=== PATIENT | male | born 2005 | race Caucasian/White ===

== ENCOUNTER 2024-02-18 00:07 | Outpatient (CLI) | payer OTHER, SELFPAY ==
--- OUTSIDE RECORDS SUMMARY | 2024-02-19 10:24 | XMS_ITS | Clinical Summary ---
Author Organization [facility] Address [address] [place] [address] Care Team Providers Care Physician Practice Manager Name Role Phone Gabe Morales MD Primary Care Provider [phone] Source Comments You are receiving this document as you are listed as the primary care provider,follow-up provider, or the patient has been referred to you for consultation.This is in compliance with the Medicare and[facility] EHR Incentive Program,which states Providers who transition their patient to another setting of careor provider of care or refers their patient to another provider of care shouldprovide summary care record for each transition of care or referral. [facility] Allergies Active Allergy Reactions Criticality Noted Date [...] Description 02/10/2024 7:40 AM CDT Office Visit [facility] [address] [place] [address] Gabe Morales MD Left wrist pain (Primary Dx); Acute cough from Last 3 Months Immunizations Name Administration Dates Next Due 9vHPV (Gardasil 9) 06/09/2017,02/11/2016, 014 DTaP 2008,11/23/2004,2003 [id number] (Pediarix) 02/25/2004,2003,0 2003 Flu Vac (3+ yrs) 03/25/2007 Flu Vac (6-35 mo) 04/20/2004,03/19/2004 Flu Vac Preserv Free (3+yrs) 03/30/2005 Fluzone Qiv Multidose Vial 0 .25 (6-35 Mos) 04/05/2018,02/11/2016 [id number] 05/03/2009 HepA Adult (19+ yrs) 08/22/2007,12/16/2006 HepA, Unspecified Formulation 08/22/2007, 007 HepB, Unspecified Formulation 02/25/2004, 004,2003 Hib (HbOC) 2003,2003 Hib (PedvaxHIB) 08/19/2004 IPV (Polio) 08/22/2007, 4,2003,2003 Influenza (Flucelvax), Prese rv Free QIV 03/29/2022 Influenza IIV4 (Quadrivalent ) 0.5mL ([id number]) 04/21/2021,03/06/2020,03/04/2019 Influenza, Unspecified Formulation 03/25/2007 MCV4 (Menactra) [...] (Preventive Services) 2019 COVID-19 Vaccine ( season) 2024 03/29/2022, 06/04/2021, 09/20/2020, Additional history exists Influenza [...] Vaccine Completed 06/09/2017, 01/13, 06/09/2014 Care Teams Physician Practice Manager Relationship Specialty Start Date End Date Gabe Morales MD [address] [place], [place] [phone] PCP - General Family Practice 10/17/23
--- OUTSIDE RECORDS SUMMARY | 2024-02-19 10:25 | XMS_ITS | Encounter Summary ---
Author Organization [facility] Address [address] [place] [address]. [place] [address] Care Team Providers Care Handtools Repairer Name Role Phone Megha Worthington MD Unavailable Dee Dee Ruiz MD Unavailable [phone] Dee Dee Ruiz MD Primary Care Provider [phone] Encounter Details Date Type Department Care Team [...] on filedocumented in this encounter Care Teams Handtools Repairer Relationship Specialty Start Date End Date Dee Dee Ruiz MD [address] [place] [address] PCP - General Pediatrics 09/04/14 Megha Worthington MD [facility] [address] [facility] [place] [address] Referring Physician Orthopaedic Surgery 10/18/17 Dee Dee Ruiz MD [address] [place] [address] Assigned PCP 11/26/20 03/26/22 documented as of this encounter
--- OUTSIDE RECORDS SUMMARY | 2024-02-19 10:25 | XMS_ITS | Encounter Summary ---
Author Organization [facility] Address [address] [place] [address] Care Team Providers Care Accounting Office Manager Name Role Phone Megha Worthington MD Unavailable Dee Dee Ruiz MD Unavailable [phone] Dee Dee Ruiz MD Primary Care Provider + [phone] Encounter Details Date Type Department Care Team [...] on filedocumented in this encounter Care Teams Accounting Office Manager Relationship Specialty Start Date End Date Dee Dee Ruiz MD [address] [place] [address] PCP - General Pediatrics 09/04/14 Megha Worthington MD [facility] [address] [place] [address] Referring Physician Orthopaedic Surgery 10/18/17 Dee Dee Ruiz MD [address] [place] [address] Assigned PCP 11/26/20 03/26/22 documented as of this encounter
--- OUTSIDE RECORDS SUMMARY | 2024-02-19 10:25 | XMS_ITS | Clinical Summary ---
Author Organization [facility] Address [address] [place] [address]. [place] [address] Care Team Providers Care Garbage Worker Name Role Phone Megha Worthington MD Unavailable Dee Dee Ruiz MD Primary Care Provider [phone] Allergies Active Allergy Reactions Criticality Noted Date [...] of Treatment Not on file Care Teams Garbage Worker Relationship Specialty Start Date End Date Dee Dee Ruiz MD [address] [place] [address] PCP - General Pediatrics 09/04/14 Megha Worthington MD [facility] [address] [place] [address] Referring Physician Orthopaedic Surgery 10/18/17
--- OUTSIDE RECORDS SUMMARY | 2024-02-19 10:25 | XMS_ITS | Referral Summary ---
Author Organization [facility] Address [address] [place] [address]. [place] [address] Care Team Providers Care Aviation Tactical Readiness Officer Name Role Phone Megha Worthington MD Unavailable Dee Dee Ruiz MD Primary Care Provider [phone] Allergies Active Allergy Reactions Criticality Noted Date [...] of Treatment Not on file Care Teams Aviation Tactical Readiness Officer Relationship Specialty Start Date End Date Dee Dee Ruiz MD [address] [place] [address] PCP - General Pediatrics 09/04/14 Megha Worthington MD [facility] [address] [place] [address] Referring Physician Orthopaedic Surgery 10/18/17
--- OUTSIDE RECORDS SUMMARY | 2024-02-19 10:25 | XMS_ITS | Encounter Summary ---
Author Organization [facility] Address [address] [place] [address] Care Team Providers Care Applications Administrator Name Role Phone Gabe Morales MD Primary Care Provider [phone] Reason for Visit * Reason Comments ROUTINE HEALTH MAINTENANCE Encounter Details Date Type Department Care Team (Latest Contact Info) Description 11/15/2023 12:40 PM CDT Office Visit [facility] [address] [place], [place] [phone] Gabe Morales MD [address] [place], [place] [phone] Routine health maintenance (Primary Dx); Attention deficit [...] Patient Instructions * Patient Instructions* Hilda Akers, DIE CASTER - 11/15/2023 12:40 PM CDT Images from [...] can you learn more? 1. Go to [email or web address].Klutch/Photocollectlibrary. 2. Enter P072 in the search box. Current as of: January 16, 2023?Content Version: 14.0 ?? [employer]. Care instructions adapted under license by your healthcare professional. If you have questions about a medical condition or this instruction, always ask your healthcare professional. [employer] disclaims any warranty or liability for your use of this information. [employer] DNA is your genetic information, and it's unique to you. It can also hold the ryder to discovering genetic health risks, creating personalized care and building a healthier community. [employer] is launching [employer] Solutions[employer], a study that looks at how DNA [...] family and generations to come.If you're a [employer] or Tiffany Pascal patient over the age of 18, you can take part in the study. Registration is quick and easy, and there is no cost to you. Learn more about [employer] and register at [employer]/IID Your privacy is our priority We take [...] started on meds in 2012. Previously with [facility] and took hiatus from medications due to COVID. Restarted stimulant 01/27/23. Target symptoms are focus in the classroom. Reports things going well, denies side effects. Uses really just around exams. Currently taking methylphenidate 30 mg CR (Metadate) in the morning & 5 mg (Ritalin) in afternoon PMH ADHD PSH None FH None SH [place], [employer]. 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
--- OUTSIDE RECORDS SUMMARY | 2024-02-19 10:25 | XMS_ITS | Encounter Summary ---
Author Organization [facility] Address [address] [place] [address] Care Team Providers Care Senior Data Warehouse Developer Name Role Phone Gabe Morales MD Primary Care Provider [phone] Reason for Visit * Reason Comments WRIST PAIN COUGH Encounter Details Date Type Department Care Team (Late st Contact Info) Description 02/10/2024 7:40 AM CDT Office Visit [facility] [address] [facility] [place], [place] [phone] Gabe Morales MD [address] [place], [place] [phone] Left wrist pain (Primary Dx); Acute cough [...] cough documented in this encounter Care Teams Senior Data Warehouse Developer Relationship Specialty Start Date End Date Gabe Morales MD [address] [place] [address] PCP - General Family Practice 10/17/23 documented as of this encounter
== END 2024-02-18 00:08 | disposition home or self-care (01) ==
LOC: AMB 02-19 10:23
PROVIDERS: Visit Provider Family Medicine
DX: S09.90XA Unspecified injury of head, initial encounter (principal); W22.8XXA Striking against or struck by other objects, initial encounter; Y92.169 Unspecified place in school dormitory as the place of occurrence of the external cause
CPT/HCPCS: A0425; A0429

== ENCOUNTER 2024-02-18 00:22 | Emergency (ER) | payer OTHER, SELFPAY ==
[2024-02-18 00:26] VITALS: BP 145/87; PULSE 88; RESP 16; TEMP 36.1; O2SAT 98; BMI 24.8
--- NOTE | 2024-02-18 00:44 | ED_ITS ---
HPI - General Adult General Chief complaint: Head Injury/Pain Stated complaint: fall w/head lac Time Seen by Provider: 02/18/24 00:30 Source: patient Mode of arrival: ambulatory History of Present Illness HPI narrative: 18-year-old male presents the emergency department after minor head injury. He is not intoxicated, he was sitting up underneath his loft bed in his campus apartment. He has had up to quickly with limited spatial awareness and hit the top of his head on the underside of the loft. No loss of consciousness. No neurological changes. Bleeding noted. He called [email or web address] and they called the ambulance. No neck pain, no vision changes, no neuro changes, no vomiting. He is not anticoagulated. No prior history of significant head injuries. Small laceration noted to the top of the scalp, no other areas of injury reported. No illness or recent medical issues. Did not try any other interventions could prior to coming to ED. Past medical history notable for ADHD. Reports his only home medication is methylphenidate. Allergy to penicillin. Political science major. ROS notable for the mild scalp injury only, otherwise denies times 12 systems. Related Data Home Medications ?Medication ?Instructions ?Recorded ?Confirmed methylphenidate HCl .ROUTE 02/18/24 Allergies Allergy/AdvReac Type Severity Reaction Status Date / Time Penicillins Allergy Unknown Verified 02/18/24 00:30 [facility] Social History Smoking Status: Never smoker Do you use any of these nicotine containing products: None Second hand tobacco smoke exposure: No How often do you have a drink containing alcohol: never How often do you have six or more drinks on one occasion: Never AUDIT-C Alcohol total score: 0 Non-prescribed substance use: denies use service: No Exam Const: Vital Signs, click to edit/add: Vital Signs - 24 hr 02/18/24 00:26 Temperature 97 F L Pulse Rate [Pulse Oximeter] 88 Respiratory Rate 16 Blood Pressure [Ri ght Upper Arm] 145/87 H Pulse Oximetry 98 Oxygen Delivery Me thod Room Air Documenting provider has reviewed patient's vital signs: yes Common normals: no apparent distress and oriented x3 General appearance: comfortable and well kempt Other: C collar in place. Answers questions very appropriately. No lapse in memory or judgment. Good recall. Friendly and cooperative. HENMT: Common normals: hearing grossly normal bilaterally, EAC's normal, moist oral mucous membranes and oropharynx normal Face and sinus: normal facial exam External auditory canal: EAC's normal Other: 1.5 cm laceration, epidermal and dermal thickness to the very top of the head. Linear, consistent with mechanism of injury. Slight persistent oozing noted. No other areas of injury. No significant hematoma underlying. Skull bones without deformity, crepitus or depression. Eye: Common normals: PERRL, EOMs intact bilaterally and conjunctivae normal General eye: normal appearance of both eyes Conjunctiva: conjunctiva(e) normal Pupil: PERRL Neck & C-Spine: Common normals: full ROM and no lymphadenopathy General: normal visual inspection Cervical spine: cervical ROM normal; no cervical spine tenderness, no step off deformity and no paracervical muscle tenderness Resp: Common normals: normal respiratory effort, no use of accessory muscles and clear to auscultation bilaterally Effort & inspection: able to speak in complete sentences Auscultation: clear to auscultation bilaterally Cardio: Common normals: regular rate, regular rhythm, S1 normal heart sound, S2 normal heart sound and no murmurs Rate: regular rate Rhythm: regular rhythm Heart sounds: S1 normal and S2 normal Back & Pelvis: Common normals: thoracic and lumbar spine normal to inspection Neuro: Common normals: oriented x3 and moves all extremities Speech: speech normal Gait (neuro): normal gait Motor exam: strength 5/5 throughout and no movement abnormalities noted Psych: Appearance: well kempt Attitude: engaged Activity/motor behavior: appropriate eye contact Attention/concentration: attention grossly intact Memory/cognition: memory grossly intact Insight: insight good Judgement: judgment good Skin: Narrative: Other than the 1.5 cm laceration on the top of the head, no other areas of injury. Course Course ED Course: 18-year-old male with mild head injury, exam reassuring. Cervical spine reassuring as well. No CT imaging recommended. Discussed laceration. He does have about 8 cm length hair. Discussed different options for closure, hair apposition technique recommended. Procedure: Wound closure. Scalp was gently cleansed with tap water and soap, no evidence of foreign body noted. Wound clearly examined, linear and dermal depth. No vascular involvement. Using her apposition technique and 1 throw, wound edges reapproximated, hair twisted and Dermabond is applied with good hemostasis and cosmetic closure. Well tolerated. Patient counseled on care. Keep dry for the next couple of hours. May gently shower, not scrubbing over the area for the next 4 days. In 4 days, may she improved over the area and then on day 5, may start gently brushing the dried glue away. He will take 1-2 weeks for the glue to completely dissipate. Okay to wear a hat or cover as per choice. Discussed symptoms of concussion. Not exhibiting any signs at the moment but may develop mild headache, nausea, dizziness, fatigue that will last 1-2 days. Alarm symptoms reviewed that would warrant ED presentation. Discussed Tylenol and ibuprofen for mild headache. All questions answered, written instructions provided. Vital Signs Vital signs: Initial Vital Signs Temperature 97 F L 02/18/24 00:26 Temperature Source Temporal Artery Scan 02/18/24 00:26 Pulse Rate 88 02/18/24 00:26 Pulse Rhythm Regular 02/18/24 00:26 Pulse Strength 3+ Normal 02/18/24 00:26 Respiratory Rate 16 02/18/24 00:26 Blood Pressure 145/87 H 02/18/24 00:26 Blood Pressure Mean 106 H 02/18/24 00:26 Blood Pressure Position Sitting 02/18/24 00:26 Pulse Oximetry 98 02/18/24 00:26 Oxygen Delivery Method Room Air 02/18/24 00:26 Vital Signs Temperature 97 F L 02/18/24 00:26 Pulse Rate 88 02/18/24 00:26 Respiratory Rate 16 02/18/24 00:26 Blood Pressure 145/87 H 02/18/24 00:26 Pulse Oximetry 98 02/18/24 00:26 Oxygen Delivery Method Room Air 02/18/24 00:26 Temperature 97 F L 02/18/24 00:26 Pulse Rate 88 02/18/24 00:26 Respiratory Rate 16 02/18/24 00:26 Blood Pressure 145/87 H 02/18/24 00:26 Pulse Oximetry 98 02/18/24 00:26 Oxygen Delivery Method Room Air 02/18/24 00:26 Discharge Plan Discharge Clinical Impression: Minor closed head injury, Simple laceration of scalp Patient Disposition: Home w/ Parent or Adult Condition: Improved Instructions: Head Injury (DC) Additional Instructions: As we discussed, the small laceration on her scalp was closed using your own natural hair and a combination of Dermabond, a medical grade glue. By putting the cut ends of the skin back together, it really will close up in about 48 hours. It will be delicate for a few days after. You may gently shower in 1 hour if you choose or wait until morning. Do not aggressively scrubbed or shampoo over the area of the cut until . You may wash the sides of your hair and gently the other parts of the head just not directly over the Dermabond and cut until . It is okay for water to gently run over this area. Remember that even 1 drop of blood in a lot of water makes all of the water look red. Do not be alarmed by this appearance. Starting , you may she improve over the glue area. Starting Tuesday you may gently brush over the area and began picking away the dried glue. It will take a total of 7-14 days for all of the glue to come free. This is an easier to care for type of closure. It does not require follow-up visits to have the sutures removed. The glue will naturally dissolve on its own. You are not showing any signs of serious head injury but I would expect some mild concussion symptoms for the next couple of days. That will typically look like mild headache, dizziness, fatigue and feeling a little off balance and nauseated. Loss of consciousness, seizures or persistent vomiting would not be normal and would warrant a repeat trip to the emergency department. It is okay to use Tylenol 1000 mg every 6 hours and or ibuprofen 600 mg every 6 hours for headache. It is okay to return to all typical school and or work duties immediately. Activity Level: No Restrictions Discharge Diet: Regular Prescriptions: No Action methylphenidate HCl .ROUTE Stand Alone Forms: [employer] Info Instructions
--- OUTSIDE RECORDS SUMMARY | 2024-02-18 00:53 | XMS_ITS | Encounter Summary ---
Author Organization [facility] Address [address] [place] [address] Care Team Providers Care Test Fixture Designer Name Role Phone Gabe Morales MD Primary Care Provider [phone] Reason for Visit * Reason Comments ROUTINE HEALTH MAINTENANCE Encounter Details Date Type Department Care Team (Latest Contact Info) Description 11/15/2023 12:40 PM CDT Office Visit [facility] [address] [place], [place] [phone] Gabe Morales MD [address] [place], [place] [phone] Routine health maintenance (Primary Dx); Attention deficit hyperactivity disorder (ADHD), predominantly inattentive type (HRC) Social History Tobacco Use Types Packs/Day Years Used Date Smoking Tobacco: Never Smokeless Tobacco: Never Alcohol Use Standard Drinks/Week Comments Never 0 (1 standard drink = 0.6 oz pur e alcohol) PHQ-2 Answer Date Recorded PHQ-2 Score 2 01/12/2023 Financial Resource Strain Answer Date R ecorded Is it hard for you to pay fo r the very basics like food, housing, medical care or heating? No 11/14/2023 Food Insecurity Answer Date Recorded Does your food run out before you have the money to buy more? No 11/14/2023 Transportation Needs Answer Date Record ed Does a lack of transportatio n keep you from your medical appointments or from getting your medications? No 024 Sex and Gender Information Value Date Recorded Sex Assigned at Not on file Gender Identity Not on file Sexual Orientation Not on file documented as of this encounter Last Filed Vital Signs Vital Sign Reading Time Taken Comments Blood Pressure 96/60 11/15/2023 12:24 PM CDT Pulse 80 11/15/2023 12:24 PM CDT Temperature - - Respiratory Rate - - Oxygen Saturation - - Inhaled Oxygen Concentration - - Weight 82.6 kg (182 lb) 11/15/2023 12:24 PM CDT Height 186.7 cm (6' 1.5) 11/15/2023 12:24 PM CD T Body Mass Index 23.69 11/15/2023 12:24 PM CDT documented in this encounter Patient Instructions * Patient Instructions* Hilda Akers, PERFECT BINDER SETTER - 11/15/2023 12:40 PM CDT Images from the original note were not included. Well Visit, Ages 18 to 65: Care Instructions Well visits can help you stay healthy. Your doctor has checked your overall health and may have suggested ways to take good care of yourself. Your doctor also may have recommended tests. You can helpprevent illness with healthy eating, good sleep, vaccinations, regular exercise, and other steps. Get the tests that you and your doctor decide on. Depending on your age and risks, examples might include screening for diabetes; hepatitis C; HIV; and cervical, breast, lung, and colon cancer. Screening helps find diseases before any symptoms appear. Eat healthy foods. Choose fruits, vegetables, whole grains, lean protein, and low-fat dairy foods. Limit saturated fat and reduce salt. Limit alcohol. Men should have no more than 2 drinks a day. Women should have no more than 1. For some people, no alcohol is the best choice. Exercise. Get at least 30 minutes of exercise on most days of the week. Walking can be a good choice. Reach and stay at your healthy weight. This will lower your risk for many health problems. Take care of your mental health. Try to stay connected with friends, family, and community, and find ways to manage stress. If you're feeling depressed or hopeless, talk to someone. A counselor can help. If you don't have acounselor, talk to your doctor. Talk to your doctor if you think you may have a problem with alcohol or drug use. This includes prescription medicines, marijuana, and other drugs. Avoid tobacco and nicotine: Don't smoke, vape, or chew. If you need help quitting, talk to your doctor. Practice safer sex. Getting tested, using condoms or dental dams, and limiting sex partners can help prevent STIs. Use control if it's important to you to prevent . Talk with your doctor about your choices and what might be best for you. Prevent problems where you can. Protect your skin from too much sun, wash your hands, brush your teeth twice a day, and wear a seat belt in the car. Where can you learn more? 1. Go to https://www.[employer]. 2. Enter P072 in the search box. Current as of: January 16, 2023?Content Version: 14.0 ?? [employer]. Care instructions adapted under license by your healthcare professional. If you have questions about a medical condition or this instruction, always ask your healthcare professional. [employer] disclaims any warranty or liability for your use of this information. [employer] DNA is your genetic information, and it's unique to you. It can also hold the ryder to discovering genetic health risks, creating personalized care and building a healthier community. [employer] is launching [employer], a study that looks at how DNA impacts health and how it canbe used to provide more personalized care to you, your family and community. What you can learn from your DNA Looking at your DNA can give insight to your personal traits, ancestral roots and risk of developing certain inherited conditions. Discover your genetic risk for: Hereditary breast and ovarian cancer Souza syndrome (a type of hereditary colorectal cancer) Familial hypercholesterolemia (hereditary high cholesterol) Learn about your: Regional ancestry Traits like gluten tolerance, caffeine sensitivity and more How to participate Be a part of a program that could improve health care for you, your family and generations to come.If you're a [employer] or Tiffany Pascal patient over the age of 18, you can take part in the study. Registration is quick and easy, and there is no cost to you. Learn more about [employer] and register at [employer] Your privacy is our priority We take great care to keep your information safe and secure and will not share personal data beyondwhat you have consented to. documented in this encounter Progress Notes * Gabe Morales MD - 11/15/2023 12:40 PM CDT Subjective Frederick presents for ROUTINE HEALTH MAINTENANCE care. Current concerns: pt not fasting Consumption of fruits and vegetables is (P) 0 - 1 servings each day. Exercise is (P) Infrequent. Hearing concerns: (P) No Feels safe at home: (P) Yes Attention deficit hyperactivity disorder (ADHD), predominantly inattentive type Diagnosed around 2009. Thinks he started on meds in 2012. Previously with [employer] and took hiatus from medications due to COVID. Restarted stimulant 01/27/23. Target symptoms are focus in the classroom. Reports things going well, denies side effects. Uses really just around exams. Currently taking methylphenidate 30 mg CR (Metadate) in the morning & 5 mg (Ritalin) in afternoon PMH ADHD PSH None FH None SH [employer], [employer]. 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 General: Appears stated age, alert and comfortable HEENT: normal eyes, ears, throat, oropharynx Neck: thyroid normal Lungs: clear to auscultation, no wheezes or rales CV: regular rate and rhythm, normal S1 and S2 without murmur or click Abd: Soft, non-tender, no masses, no hepatomegaly or splenomegaly. : not examined Skin: no significant abnormalities noted Assessment/Plan 1. Routine health maintenance The patient's routine health maintenance tasks were addressed today and will be completed unless otherwise declined by the patient. We discussed age appropriate preventive health care topics today. 2. Attention deficit hyperactivity disorder (ADHD), predominantly inattentive type (HRC) Chronic condition with adequate control. No change to management. CSA completed today. - methylphenidate (METADATE CD) 30 MG controlled release capsule; Take 1 Capsule (30 mg) by mouth daily. Dispense: 30 Capsule; Refill: 0 - methylphenidate (METADATE CD) 30 MG controlled release capsule; Take 1 Capsule (30 mg) by mouth daily. Do not start before December 15, 2023. Dispense: 30 Capsule; Refill: 0 - methylphenidate (METADATE CD) 30 MG controlled release capsule; Take 1 Capsule (30 mg) by mouth daily. Do not start before January 14, 2024. Dispense: 30 Capsule; Refill: 0 - methylphenidate (RITALIN) 5 MG tablet; Take 1 Tablet (5 mg) by mouth daily at noon. Dispense: 30 Tablet; Refill: 0 - methylphenidate (RITALIN) 5 MG tablet; Take 1 Tablet (5 mg) by mouth daily at noon. Do not start before December 15, 2023. Dispense: 30 Tablet; Refill: 0 - methylphenidate (RITALIN) 5 MG tablet; Take 1 Tablet (5 mg) by mouth daily at noon. Do not start before January 14, 2024. Dispense: 30 Tablet; Refill: 0 documented in this encounter Plan of Treatment Not on file documented as of this encounter Visit Diagnoses Diagnosis Routine health maintenance- Primary Routine general medical examination at a health care facility Attention deficit hyperactivity disorder (ADHD), predominantly inattentive type (HRC) documented in this encounter Care Teams Test Fixture Designer Relationship Specialty Start Date End Date Gabe Morales MD [address] [place] [address] PCP - General Family Practice 10/17/23 documented as of this encounter
--- OUTSIDE RECORDS SUMMARY | 2024-02-18 00:53 | XMS_ITS | Encounter Summary ---
Author Organization [facility] Address [address] [place] [address]. [place] [address] Care Team Providers Care Engine Specialist Name Role Phone Megha Worthington MD Unavailable Dee Dee Ruiz MD Unavailable [phone] Dee Dee Ruiz MD Primary Care Provider [phone] Encounter Details Date Type Department Care Team (Late st Contact Info) Description 02/11/2016 Records - [facility] CONVERSION Scan, Non-Provider Social History Tobacco Use Types Packs/Day Years Used Date Smoking Tobacco: Never Assessed Sex and Gender Information Value Date Recorded Sex Assigned at Not on file Gender Identity Not on file Sexual Orientation Not on file documented as of this encounter Plan of Treatment Not on file documented as of this encounter Visit Diagnoses Not on filedocumented in this encounter Care Teams Engine Specialist Relationship Specialty Start Date End Date Dee Dee Ruiz MD [address] [place] [address] PCP - General Pediatrics 09/04/14 Megha Worthington MD [facility] [address] [facility] [place] [place] [address] Referring Physician Orthopaedic Surgery 10/18/17 Dee Dee Ruiz MD [address] [place] [address] Assigned PCP 11/26/20 03/26/22 documented as of this encounter
--- OUTSIDE RECORDS SUMMARY | 2024-02-18 00:53 | XMS_ITS | Clinical Summary ---
Author Organization [facility] Address [address] [place] [address] Care Team Providers Care Wood Cabinet Finisher Name Role Phone Gabe Morales MD Primary Care Provider + [phone] Source Comments You are receiving this document as you are listed as the primary care provider,follow-up provider, or the patient has been referred to you for consultation.This is in compliance with the Medicare and[facility] Cent[facility]aid EHR Incentive Program,which states Providers who transition their patient to another setting of careor provider of care or refers their patient to another provider of care shouldprovide summary care record for each transition of care or referral. [employer] Allergies Active Allergy Reactions Criticality Noted Date Comments Amoxicillin Rash 08/27/2004 Penicillins Hives High 09/15/2007 Medications Medication Sig Dispensed Refills Start Date End Date Status methylphenidate (METADATE CD) 30 MG controlled release capsuleIndications:Att ention deficit hyperactivity disorder (ADHD), predominantly inattentive type (HRC) Take 1 Capsule (30 mg) by mouth daily. 30 Capsule 11/15/2023 Active methylphenidate (METADATE CD) 30 MG controlled release capsuleIndications:Att ention deficit hyperactivity disorder (ADHD), predominantly inattentive type (HRC) Take 1 Capsule (30 mg) by mouth daily. Do not start before December 15, 2023. 30 Capsule 12/15/2023 Active methylphenidate (METADATE CD) 30 MG controlled release capsuleIndications:Att ention deficit hyperactivity disorder (ADHD), predominantly inattentive type (HRC) Take 1 Capsule (30 mg) by mouth daily. Do not start before January 14, 2024. 30 Capsule 01/14/2024 Active methylphenidate (RITALIN) 5 MG tabletIndications:Atte ntion deficit hyperactivity disorder (ADHD), predominantly inattentive type (HRC) Take 1 Tablet (5 mg) by mouth daily at noon. 30 Tablet 11/15/2023 Active methylphenidate (RITALIN) 5 MG tabletIndications:Atte ntion deficit hyperactivity disorder (ADHD), predominantly inattentive type (HRC) Take 1 Tablet (5 mg) by mouth daily at noon. Do not start before December 15, 2023. 30 Tablet 12/15/2023 Active methylphenidate (RITALIN) 5 MG tabletIndications:Atte ntion deficit hyperactivity disorder (ADHD), predominantly inattentive type (HRC) Take 1 Tablet (5 mg) by mouth daily at noon. Do not start before January 14, 2024. 30 Tablet 01/14/2024 Active Active Problems Problem Noted Date Diagnosed Date Careplan ADHD 11/15/2023 Overview (11/15/2023): Date CSA signed: 11/15/2023 Provider: Gabe Morales MD Specific diagnosis requiring stimulant treatment: Attention deficit hyperactivity disorder (ADHD), predominantly inattentive type Medication(s) prescribed and instructions for use: 1) methylphenidate (METADATE CD) 30 MG controlled release capsule; Take 1 Capsule (30 mg) by mouth daily 2) methylphenidate (RITALIN) 5 MG tablet; Take 1 Tablet (5 mg) by mouth daily at noon Amount dispensed per prescription: 30 for each prescription listed above Duration of each prescription: 30 days 3 months of prescriptions to be provided at a time. 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 [address] Gabe Morales MD Left wrist pain (Primary Dx); Acute cough from Last 3 Months Immunizations Name Administration Dates Next Due 9vHPV (Gardasil 9) 06/09/2017,02/11/2016, 014 DTaP 2008,11/23/2004,2003 [id number] (Pediarix) 02/25/2004,2003,0 2003 Flu Vac (3+ yrs) 03/25/2007 Flu Vac (6-35 mo) 04/20/2004,03/19/2004 Flu Vac Preserv Free (3+yrs) 03/30/2005 Fluzone Qiv Multidose Vial 0 .25 (6-35 Mos) 04/05/2018,02/11/2016 [id number] 05/03/2009 HepA Adult (19+ yrs) 08/22/2007,12/16/2006 HepA, Unspecified Formulation 08/22/2007, 007 HepB, Unspecified Formulation 02/25/2004, 004,2003 Hib (HbOC) 2003,2003 Hib (PedvaxHIB) 08/19/2004 IPV (Polio) 08/22/2007, 4,2003,2003 Influenza (Flucelvax), Prese rv Free QIV 03/29/2022 Influenza IIV4 (Quadrivalent ) 0.5mL (35974) 04/21/2021,03/06/2020,03/04/2019 Influenza, Unspecified Formulation 03/25/2007 MCV4 (Menactra) 02/11/2016 MMR 2008,08/19/2004 MPSV4 (Menomune) 02/11/2016 Pfizer Bivalent 12+ 03/29/2022 Pfizer Monovalent 12+ Purple Top 06/04/2021,04/,08/30/2020 Pneumococcal 7, PED 11/23/2004, 4,02/25/2004,2003,2003 Tdap 02/11/2016 Varicella 2008,11/23/2004 Social History Tobacco Use Types Packs/Day Years [...] on file Sexual Orientation Not on file Last Filed Vital Signs Vital Sign Reading Time Taken Comments Blood Pressure 116/75 02/10/2024 7:31 AM CDT Pulse 95 02/10/2024 7:31 AM CDT Temperature 36.1 ??C (97 ??F) 02/10/2024 7:31 AM CDT Respiratory Rate - - Oxygen Saturation 98% 02/10/2024 7:31 AM CDT Inhaled Oxygen Concentration - - Weight 82.6 kg (182 lb) 02/10/2024 7:31 AM CDT Height 186.7 cm (6' 1.5) 11/15/2023 12:24 PM CD T Body Mass Index 23.69 11/15/2023 12:24 PM CDT Plan of Treatment Health Maintenance Due Date Last Done Comments Hep C Screening (Preventive Services) 2003 HIV Screening (Preventive Services) 2019 COVID-19 Vaccine ( season) 2023 03/29/2022, 06/04/2021, 09/20/2020, Additional history exists Influenza (#1) 2024 03/29/2022, 11/0 02/2021, 03/06/2020, Additional history exists Adult Preventive Visit 11/14/2024 , 11/23/2004, 08/19/2004 DTaP/Tdap/Td (6 - Tdap) 02/10/2026 02/11/20 16, 2008, 11/23/2004, Additional history exists Zoster/Shingles (1 of 2) 08/19/2053 HepB Completed 02/25/2004, 02/11, 2003, Additional history exists Hib Completed 08/19/2004, 02/2004, 2003 Pneumococcal Aged Out 11/23/2004, 11/2003, 02/25/2004, Additional history exists No longer eligible based on patient's age to complete this topic HepA Completed 08/22/2007, 08/11, 12/16/2006, Additional history exists IPV (Polio) Completed 08/22/2007, 02/11, 02/25/2004, Additional history exists Varicella Completed 2008, 11/23/2004 MCV4 Aged Out 02/11/2016, 02/11/2016 No lo nger eligible based on patient's age to complete this topic HPV Vaccine Completed 06/09/2017, 01/13, 06/09/2014 Care Teams Wood Cabinet Finisher Relationship Specialty Start Date End Date Gabe Morales MD [address] [place], [place] [phone] PCP - General Family Practice 10/17/23
--- OUTSIDE RECORDS SUMMARY | 2024-02-18 00:53 | XMS_ITS | Encounter Summary ---
[facility] Organization [facility] Address [address] [place] [address] Care Team Providers Care Health Assessment And Treatment Teacher Name Role Phone Gabe Morales MD Primary Care Provider [phone] Reason for Visit * Reason Comments WRIST PAIN COUGH Encounter Details Date Type Department Care Team (Late st Contact Info) Description 02/10/2024 7:40 AM CDT Office Visit [facility] [address] [facility] [place], [place] [phone] Gabe Morales MD [address] [place], [place] [phone] Left wrist pain (Primary Dx); Acute cough Social History Tobacco Use Types Packs/Day Years [...] (182 lb) 02/10/2024 7:31 AM CDT Height - - Body Mass Index 23.69 11/15/2023 12:24 PM CDT documented in this encounter Patient Instructions * Patient Instructions* Gabe Morales MD - 02/10/2024 7:40 AM CDT Wrist pain: Carpal tunnel splint when doing work that requires wrist flexion Voltaren gel four times daily as needed Multiple times daily: take splint off, do wrist extension. Will get OT consult as needed For cough: Start fluticasone nasal spray. Administer 2 sprays each nostril, aiming away from your nasal septumand directed backwards as opposed to upwards. Might take 2 weeks to start working. documented in this encounter Progress Notes * Gabe Morales MD - 02/10/2024 7:40 AM CDT Historical: Chief Complaint Patient presents with WRIST PAIN COUGH Left wrist pain He reports about a month ago he started having left anterior wrist pain, worse with movement, denies specific injury but thinks possibly a child at work could have pulled on it. Pain worsens every 3-4 hours then improves. Denies swelling/bruising, full range of motion, increased clicking with rotation Cough He reports had URI about 2 weeks ago, states he still has productive cough, denies chest pain/sob, denies asthma, worse at night while laying flat, denies GERD. Cough worse when laying down I have personally reviewed the patient's allergies, medications, and past medical history in detailand updated the patient record as necessary. Observed: BP 116/75 (BP Location: Right Arm, BP Cuff Size: Regular) Pulse 95 Temp 97 ??F (36.1 ??C) (Tympanic) Wt 182 lb (82.6 kg) SpO2 98% BMI 23.69 kg/m?? Physical Exam: General Appearance: alert, well appearing, and in no apparent distress HEENT: lids normal, sclera clear, and conjunctiva normal and oropharynx clear, ear canals clear, and TMs normal Lungs: clear to auscultation and no wheezes, rales or rhonchi Assessment/Plan: 1. Left wrist pain Consistent with flexor tendon strain. Recommended heat, Voltaren four times daily as needed, stretching, and bracing daily as needed while doing strenuous activities. OT for lack of improvement. 2. Acute cough Consistent with post nasal drip. Recommended starting fluticasone nasal spray. Administer 2 sprays each nostril, aiming away from your nasal septum and directed backwards as opposed to upwards. Mighttake 2 weeks to start working. Please see orders and patient instructions Gabe Morales MD documented in this encounter Plan of Treatment Not on file documented as of this encounter Visit Diagnoses Diagnosis Left wrist pain- Primary Pain in joint, forearm Acute cough documented in this encounter Care Teams Health Assessment And Treatment Teacher Relationship Specialty Start Date End Date Gaeb Morales MD [address] [place] [address] PCP - General Family Practice 10/17/23 documented as of this encounter
--- OUTSIDE RECORDS SUMMARY | 2024-02-18 00:53 | XMS_ITS | Referral Summary ---
Author Organization [facility] Address [address] [place] [address]. 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 Immunizations Name Administration Dates Next Due DTaP, Unspecified 2008, 5,02/25/2004,12/19,2003 Flu, Unspecified 03/25/2007 HIB, Unspecified 08/19/2004,2003, 4 HPV9 06/09/2017,02/11/2016 HepA, Unspecified 08/22/2007,12/16/2006 HepB, Unspecified 02/25/2004,2003,10/25/19 04 Influenza Vaccine, 6+MO IM (QUADRIVALENT W/PRESERVATIVES) 04/05/2018,02/11/2016 MMR 2008,08/19/2004 Meningococcal ACWY (Menactra??) 02/11/2016 Pneumococcal (PCV 7) 11/23/2004,05/18/20 04,2003,10/24 Poliovirus, inactivated (IPV) 08/22/2007 ,02/25/2004,2003,10/24 TDAP (Adacel,Boostrix) 02/11/2016 Varicella 2008,11/23/2004 Social History Tobacco Use Types Packs/Day Years Used Date Smoking Tobacco: Never Smokeless Tobacco: Never Alcohol Use Standard Drinks/Week Comments Not Asked 0 (1 standard drink = 0.6 oz pur e alcohol) PHQ-2 Answer Date Recorded PHQ-2 Score 0 03/26/2019 Sex and Gender Information Value Date Recorded Sex Assigned at Not on file Gender Identity Not on file Sexual Orientation Not on file Last Filed Vital Signs Vital Sign Reading Time Taken Comments Blood Pressure 98/60 03/26/2019 12:36 PM CDT Pulse - - Temperature - - Respiratory Rate - - Oxygen Saturation - - Inhaled Oxygen Concentration - - Weight 65.8 kg (145 lb) 03/26/2019 12:36 PM CDT Height 182.2 cm (5' 11.75) 03/26/2019 12:36 PM CDT Body Mass Index 19.8 03/26/2019 12:36 PM CDT Plan of Treatment Not on file Care Teams Internal Controls Manager Relationship Specialty Start Date End Date Dee Dee Ruiz MD [address] [place] [address] PCP - General Pediatrics 09/04/14 Megha Worthington MD [facility] [address] [place] [address] Referring Physician Orthopaedic Surgery 10/18/17
--- OUTSIDE RECORDS SUMMARY | 2024-02-18 00:53 | XMS_ITS | Encounter Summary ---
Author Organization [facility] Address [address] [place] [address] Care Team Providers Care Pneumatic Tube Operator Name Role Phone Megha Worthington MD Unavailable Dee Dee Ruiz MD Unavailable [phone] Dee Dee Ruiz MD Primary Care Provider [phone] Encounter Details Date Type Department Care Team (Late st Contact Info) Description 09/25/2018 Records - [facility] CONVERSION Scan, Non-Provider Social History Tobacco Use Types Packs/Day Years Used Date Smoking Tobacco: Never Smokeless Tobacco: Never Sex and Gender Information Value Date Recorded Sex Assigned at Not on file Gender Identity Not on file Sexual Orientation Not on file documented as of this encounter Plan of Treatment Not on file documented as of this encounter Visit Diagnoses Not on filedocumented in this encounter Care Teams Pneumatic Tube Operator Relationship Specialty Start Date End Date Dee Dee Ruiz MD [address] [place] [address] PCP - General Pediatrics 09/04/14 Megha Wor[facility]ton MD [facility] [address] [place] [address] Referring Physician Orthopaedic Surgery 10/18/17 Dee Dee Ruiz MD [address] [place] [address] Assigned PCP 11/26/20 03/26/22 documented as of this encounter
--- OUTSIDE RECORDS SUMMARY | 2024-02-18 00:53 | XMS_ITS | Clinical Summary ---
Author Organization [facility] Address [address] [place] [address]. [place] [address] Care Team Providers Care It Risk And Assurance Senior Manager Name Role Phone Megha Worthington MD Unavailable Dee Dee Ruiz MD Primary Care Provider [phone] Allergies Active Allergy Reactions Criticality Noted Date [...] of Treatment Not on file Care Teams It Risk And Assurance Senior Manager Relationship Specialty Start Date End Date Dee Dee Ruiz MD [address] [place] [address] PCP - General Pediatrics 09/04/14 Megha Worthington MD [facility] [address] [place] [address] Referring Physician Orthopaedic Surgery 10/18/17
== END 2024-02-18 01:00 | disposition home or self-care (01) ==
LOC: ED 00:51
PROVIDERS: Emergency Provider Family Medicine
DX: S01.01XA Laceration without foreign body of scalp, initial encounter (principal); W22.8XXA Striking against or struck by other objects, initial encounter
CPT/HCPCS: 12001; 99282; 99283